=== PATIENT | female | born 1990 | race Two or more races ===

== ENCOUNTER 2023-10-06 19:09 | Inpatient (IN) | payer OTHER ==
[~2023-10-06] VITALS: Ht 162.6 cm; Wt 71.7 kg
[2023-10-06 21:21] LABS: PH,URINE 7.5 (5.0-8.0); URINE APPEARANCE Clear; URINE BILIRRUBIN Negative (NEGATIVE); URINE BLOOD Negative; URINE COLOR Yellow; URINE GLUCOSE Negative (NEGATIVE); URINE LEUKOCYTE Trace; URINE NITRATE Negative; URINE PROTEIN Negative (NEGATIVE); URINE UROBILINOGEN 0.2 E.U./dl
[2023-10-06 21:24] LABS: HEMATOCRIT 30.6 % (36.0-45.00); HEMOGLOBIN 10.1 g/dL (12.0-15.00); MEAN CORPUSCULAR HEMOGLOBIN 24.1 pg (27.00-32.0); PLATELET COUNT 238 K/uL (150-450); RED BLOOD COUNT 4.19 M/uL (4.00-6.00); RED CELL DISTRIBUTION WIDTH 16.7 % (11.5-14.5); URINE BACTERIA 1792.8 uL (0.0-1933); URINE EPITHELIAL CELLS 16.8 uL (0.0-38.8); URINE WBC 13.1 uL (0.0-23.2)
[2023-10-06 21:32] LABS: URINE RBC 1.7 uL (0.0-20.8)
[2023-10-06 21:39] LABS: PROTHROMBIN TIME 10.5 SECONDS (9.0-11.5)
[2023-10-06 21:45] LABS: ALBUMIN 2.7 gm/dL (3.4-5.0); BILIRUBIN TOTAL 0.45 mg/dL (0.3-1.2); CALCIUM 8.5 mg/dL (8.5-10.1); CREATININE SERUM 0.64 mg/dL (0.55-1.02); GFR 106.87; GLOBULINA 3.8 G/DL (2.4-3.5); POTASSIUM 4.18 mEq/L (3.5-5.1); TOTAL PROTEIN 6.5 gm/dL (6.4-8.2)
[2023-10-06] MEDS ORDERED: PRENATAL TABLE1 EAC4 PO (23:17)
[2023-10-06] MEDS ORDERED: SYNTHROID100 MCG PO (23:18)
[2023-10-07 17:33] LABS: ABG PH 7.338 (7.35-7.45); ABG pCO2 36.5 mmHg (35-45)
[2023-10-07 17:34] LABS: ABG PO2 29.4 mmHg (80-100); BASE EXCESS -5.9 mmol/l; BICARBONATE 19.1 mmol/l (23-25); Tco2 20.3 mmol/l; o2 21 %
== END 2023-10-10 13:42 | disposition home or self-care (01) | DRG 807 ==
LOC: LDR 19:09 → OB/GYN 10-07 18:40
PROVIDERS: Obstetrics & Gynecology; ADMIT Student in an Organized Health Care Education/Training Program; ATTEND Student in an Organized Health Care Education/Training Program
PROC: 3E0P7VZ Introduction of Hormone into Female Reproductive, Via Natural or Artificial Opening (ICD-10-PCS; 2023-10-06)
PROC: 4A1HXCZ Monitoring of Products of Conception, Cardiac Rate, External Approach (ICD-10-PCS; 2023-10-06)
PROC: 10E0XZZ Delivery of Products of Conception, External Approach (ICD-10-PCS; principal; 2023-10-07)
PROC: 0KQM0ZZ Repair Perineum Muscle, Open Approach (ICD-10-PCS; 2023-10-07)
PROC: 3E033VJ Introduction of Other Hormone into Peripheral Vein, Percutaneous Approach (ICD-10-PCS; 2023-10-07)
DX: O70.1 Second degree perineal laceration during delivery (principal); Z37.0 Single live birth; Z3A.39 39 weeks gestation of pregnancy; Z20.822 Contact with and (suspected) exposure to COVID-19